=== PATIENT | male | born 1950 | race Caucasian/White ===

== ENCOUNTER 2019-07-26 13:27 | Day surgery (SDC) | payer MEDICARE, BC ==
[~2019-07-26] VITALS: Ht 180.3 cm; Wt 80.8 kg
[~2019-07-26 13:27] MED LIST: ASCO500 PO; EZET10 PO; Galzin50 MG PO; VITAMIN D31000 UNIT PO
== END 2019-07-26 16:54 | disposition home or self-care (01) ==
LOC: ORSCSDS 13:27
PROVIDERS: Podiatrist Foot & Ankle Surgery
PROC: 0QSP04Z Reposition Left Metatarsal with Internal Fixation Device, Open Approach (ICD-10-PCS; principal; 2019-07-26 15:00)
PROC: 0JBR0ZX Excision of Left Foot Subcutaneous Tissue and Fascia, Open Approach, Diagnostic (ICD-10-PCS; principal; 2019-07-26 15:00)
DX: D36.13 Benign neoplasm of peripheral nerves and autonomic nervous system of lower limb, including hip (principal); M77.42 Metatarsalgia, left foot; K21.9 Gastro-esophageal reflux disease without esophagitis; E78.00 Pure hypercholesterolemia, unspecified; Z79.899 Other long term (current) drug therapy
CPT/HCPCS: 88305; 88312; C1713; J0171; J0690; J2250; J3010; J7120

== ENCOUNTER 2020-07-04 09:01 | Day surgery (SDC) | payer MEDICARE, BC ==
[~2020-07-04] VITALS: Ht 180.3 cm; Wt 80.4 kg
[~2020-07-04 09:01] MED LIST changes: +IBUP800 PO; +PANT40 PO; +Vitamin D2000 UNIT PO; +XYZAL5 MG PO; +ZINC15 PO
== END 2020-07-04 11:25 | disposition home or self-care (01) ==
LOC: ORSCSDS 09:01
PROVIDERS: Surgery
PROC: 0DJD8ZZ Inspection of Lower Intestinal Tract, Via Natural or Artificial Opening Endoscopic (ICD-10-PCS; principal; 2020-07-04 10:30)
DX: Z12.11 Encounter for screening for malignant neoplasm of colon (principal); Z80.0 Family history of malignant neoplasm of digestive organs; E78.00 Pure hypercholesterolemia, unspecified; Z79.899 Other long term (current) drug therapy
CPT/HCPCS: J2405; J2704; J7120

== ENCOUNTER 2020-09-27 08:10 | Day surgery (SDC) | payer MEDICARE, BC ==
[~2020-09-27] VITALS: Ht 180.3 cm; Wt 84.7 kg
--- NOTE | 2020-09-27 09:22 | NUR ---
Ambulatory in Day Surgery Surgical site prepped with 2% Chlorhexidine cloth wipe. History, Chart, Medications and Allergies reviewed before start of procedure.Lungs clear T/O to Auscultation. Patient confirms NPO status and agrees with scheduled surgery. Patient reports completing Chlorhexadine shower X2 prior to admission to hospital. ALL BELONINGS PLACED UNDER THE BED. EKG ON CHART.
--- NOTE | 2020-09-27 13:38 | NUR ---
RECIEVED PATIENT FROM PACU VSS DERMA NUÑEZ TIMES 3 SITES INTACT.
--- NOTE | 2020-09-27 14:31 | NUR ---
CONTINUES TO BE SLEEPY FEELS NOT READY TO MOVE AND GET DRESSED
--- NOTE | 2020-09-27 15:45 | NUR ---
Discharge instructions reviewed with patient. Patient verbalizes understanding. Copy given to patient to take home. Patient States Post-Procedure ride home has been arranged. Discharged via wheelchair to private car for ride home. CALLED WILL COME CAREER SERVICES ASSISTANT AT PATIENT ADMISSION ENTRANCE. PATIENT BECAME SLIGHLTY LIGHT HEADED BRIEFLY RN ASSISTED HIM WITH DRESSING AND USING URINAL. AFTER 10 MINUTES OR LESS PATIENT STATED DISZZINESS ALL THE WAY GONE FINSHED GETTING DRESSED PLACED IN WHEELCHAIR AND ESCORTED OUT.
--- NOTE | 2020-09-28 09:19 | NUR ---
09/28/20 0919 Helen Jo VERIFICATIONS: EDIT CHART.
== END 2020-09-27 15:56 | disposition home or self-care (01) ==
LOC: ORSCMMR 08:10 → ORD 09:45 → ORSCMMR 09:45
PROVIDERS: Surgery
PROC: 0YU54JZ Supplement Right Inguinal Region with Synthetic Substitute, Percutaneous Endoscopic Approach (ICD-10-PCS; principal; 2020-09-27 09:45)
PROC: 8E0W4CZ Robotic Assisted Procedure of Trunk Region, Percutaneous Endoscopic Approach (ICD-10-PCS; principal; 2020-09-27 09:45)
DX: K40.90 Unilateral inguinal hernia, without obstruction or gangrene, not specified as recurrent (principal); Z79.899 Other long term (current) drug therapy
CPT/HCPCS: 49650; S2900; 93005; 93010; C1781; J0330; J0690; J1885; J2250; J2405; J2710; J3010; J7120

== ENCOUNTER 2022-02-06 06:36 | Day surgery (SDC) | payer MEDICARE, BC ==
[2022-02-06] MEDS ORDERED: XARELTO20 MG PO (07:00)
[2022-02-06] MEDS ORDERED: ROSU10TA (07:00)
--- NOTE | 2022-02-06 07:54 | NUR ---
PT TOLERATED MANDA WELL. CALL LIGHT IN REACH.
--- NOTE | 2022-02-06 07:57 | NUR ---
PT'S IN ROOM.
--- NOTE | 2022-02-06 08:43 | NUR ---
PT DRANK WATER WITH NO ASPIRATION. DISCHARGE INSTRUCTIONS REVIEWED AND ALL QUESTIONS ANSWERED. 20 G IV DISCONTINUED FROM RIGHT AC WITH INTACT CANNULA. PT ESCORTED OUT VIA WHEELCHAIR ESCORT.
== END 2022-02-06 22:40 | disposition home or self-care (01) ==
LOC: MHTC 06:36
DX: Q21.1 Atrial septal defect (principal); I34.1 Nonrheumatic mitral (valve) prolapse; G45.3 Amaurosis fugax; Z79.01 Long term (current) use of anticoagulants; Z79.899 Other long term (current) drug therapy
CPT/HCPCS: 93312; 93325; 99152; A9270; J2250; J3010; J7030

== ENCOUNTER 2025-06-23 09:04 | Day surgery (SDC) | payer MEDICARE, BC ==
[~2025-06-23] VITALS: Ht 177.8 cm; Wt 78.4 kg
[~2025-06-23 09:04] MED LIST changes: +Aspir 8181 MG PO; +MULTI-VITAMIN1 EAC2 PO; +ROSUVASTATIN CA10 MG PO; +VITAMIN B-1250 MG PO; +VITAMIN D5000 UNIT PO; -Vitamin D2000 UNIT PO; +XARELTO20 MG PO; +Zinc Gluconate100 MG PO
[2025-06-23 09:51] VITALS: BP 156/83
--- NOTE | 2025-06-23 10:01 | NUR ---
Patient confirms NPO status and agrees with scheduled surgery. Pre-Op teaching done. Pt verbalizes understanding. Patient states colon prep results clear. Patient States Post-Procedure ride home has been arranged.
--- NOTE | 2025-06-23 10:37 | NUR ---
06/23/25 Edvin Jackson History, Chart, Medications and Allergies reviewed before start of procedure.MONITOR INTACT WITH CONTINUOUS PULSE OXIMETRY, CONTINUOUS END TITAL CO2, 3-LEAD EKG AND INTERMITTENT BLOOD PRESSURE.O2 VIA POM INTACT THROUGHOUT SEDATION/PROCEDURE.See Anesthesia record.
[2025-06-23 11:26] VITALS: BP 113/81
--- NOTE | 2025-06-23 11:54 | NUR ---
Patient States Post-Procedure ride home has been arranged. Discharged via wheelchair to private car for ride home. Discharge instructions reviewed with patient. Patient verbalizes understanding. Copy given to patient to take home.
== END 2025-06-23 23:00 | disposition home or self-care (01) ==
LOC: ORSCMMR 09:04 → ORD 10:30 → ORSCMMR 10:30
PROVIDERS: Surgery
PROC: 0DBP8ZX Excision of Rectum, Via Natural or Artificial Opening Endoscopic, Diagnostic (ICD-10-PCS; principal; 2025-06-23 10:30)
PROC: 0DBL8ZX Excision of Transverse Colon, Via Natural or Artificial Opening Endoscopic, Diagnostic (ICD-10-PCS; principal; 2025-06-23 10:30)
DX: Z12.11 Encounter for screening for malignant neoplasm of colon (principal); D12.3 Benign neoplasm of transverse colon; K62.1 Rectal polyp; K57.30 Diverticulosis of large intestine without perforation or abscess without bleeding; Z80.0 Family history of malignant neoplasm of digestive organs; N18.9 Chronic kidney disease, unspecified; K21.9 Gastro-esophageal reflux disease without esophagitis; E78.00 Pure hypercholesterolemia, unspecified; Z86.718 Personal history of other venous thrombosis and embolism; R00.1 Bradycardia, unspecified; Z79.82 Long term (current) use of aspirin; Z79.899 Other long term (current) drug therapy
CPT/HCPCS: 88305; J2704; J7120